=== PATIENT | female | born 1995 | race Caucasian/White ===

== ENCOUNTER 2023-10-31 17:06 | Emergency (ER) | payer OTHER ==
[2023-10-31 18:01] LABS: BASOPHILS % (AUTO) 0.5 %; EOSINOPHILS # (AUTO) 0.1 10^3/uL (0.0-0.7); EOSINOPHILS % (AUTO) 1.9 %; HCT - HEMATOCRIT 36.7 % (37.0-47.0); HGB - HEMOGLOBIN 12.5 g/dL (12.0-16.0); LYMPHOCYTES # (AUTO) 0.9 10^3/uL (1.5-3.5); LYMPHOCYTES % (AUTO) 20.1 %; MEAN CORPUSCULAR HEMOGLOBIN 31.3 pg (27.0-31.0); MEAN CORPUSCULAR HGB CONC 34.1 g/dL (32.0-36.0); MEAN CORPUSCULAR VOLUME 91.8 fL (81.0-99.0); MONOCYTES # (AUTO) 0.3 10^3/uL (0.0-1.0); MONOCYTES % (AUTO) 6.8 %; NEUTROPHILS % (AUTO) 70.5 %; PLT - PLATELET COUNT 268 10^3/uL (130-450); WHITE BLOOD COUNT 4.3 x10^3/uL (4.8-10.8)
[2023-10-31 18:14] LABS: ALBUMIN 4.9 g/dL (3.2-5.5); ALBUMIN/GLOBULIN RATIO 1.4 (1.0-2.2); BILIRUBIN,TOTAL 0.5 mg/dL (0.2-1.0); CALCIUM 9.9 mg/dL (8.5-10.3); CREATININE 0.9 mg/dL (0.6-1.3); POTASSIUM 3.8 mmol/L (3.5-4.5); TOTAL PROTEIN 8.3 g/dL (6.4-8.9)
[2023-10-31] MEDS: SODIUM CHLORIDE 0.9% 1,000 ML IV STA ×2 (19:07)
--- NOTE | 2023-10-31 19:16 | ED Physician Documentation ---
History of Present Illness - Stated complaint Stated Complaint: WEAKNESS/NO APPETITE/GI - Chief complaint Chief Complaint: General - History obtained from History obtained from: Patient - History of Present Illness Timing: Today Pain level max: 0 Pain level now: 0 - Additonal information Additional information: Patient is a 27-year-old female who presents to the emergency department stating that she has been sick with COVID for about the past 10 days. She states she feels tired and weak. She states that she has gastroparesis, diarrhea and feels like she is dehydrated. She is requesting IV fluids. No fevers. No chills. Cough is improving. Nothing makes it better or worse. Patient denies any possibility of . Not breast-feeding. Review of Systems Constitutional: denies: Fever, Chills Nose: denies: Rhinorrhea / runny nose, Congestion Skin: denies: Rash Musculoskeletal: denies: Neck pain, Back pain Neurologic: denies: Headache PD PAST MEDICAL HISTORY - Past Medical History Past Medical History: Yes Neuro: Migraines GI: Other Other Past Medical History: idopathic gastroparesis - Past Surgical History Past Surgical History: Yes General: Other HEENT: Tonsil/Adenoidectomy - Present Medications Home Medications: Ambulatory Orders Medication Instructions Recorded Confirmed Amitriptyline [Elavil] 25 mg PO HS 10/31/23 10/31/23 - Allergies Allergies/Adverse Reactions: Allergies Allergy/AdvReac Type Severity Reaction Status Date / Time doxycycline AdvReac Unknown Verified 10/31/23 17:31 - Social History Does the pt smoke?: No Smoking Status: Never smoker Does the pt drink ETOH?: Yes Does the pt have substance abuse?: No PD ED PE NORMAL - Vitals Vital signs reviewed: Yes - General General: Alert and oriented X 3, No acute distress - HEENT HEENT: Moist mucous membranes - Neck Neck: Supple, no meningeal sign - Cardiac Cardiac: RRR, Strong equal pulses - Respiratory Respiratory: No respiratory distress, Clear bilaterally - Abdomen Abdomen: Soft, Non tender, Non distended - Derm Derm: Warm and dry - Extremities Extremities: No edema - Neuro Neuro: Alert and oriented X 3 - Psych Psych: Normal mood, Normal affect Results - Vitals Vitals: Vital Signs - 24 hr 10/31/23 10/31/23 10/31/23 17:24 17:31 19:31 Temperature 36.8 C 36.8 C Heart Rate 124 H 124 H 89 Respiratory 15 15 18 Rate Blood Pressure 118/65 118/65 109/88 H O2 Saturation 99 99 98 10/31/23 20:33 Temperature Heart Rate 80 Respiratory 18 Rate Blood Pressure 109/88 H O2 Saturation 98 Oxygen O2 Source Room air - Labs Labs: Laboratory Tests 10/31/23 10/31/23 17:55 17:55 WBC 4.3 L RBC 4.00 L Hgb 12.5 Hct 36.7 L MCV 91.8 MCH 31.3 H MCHC 34.1 RDW 12.0 Plt Count 268 MPV 8.0 Neut # (Auto) 3.0 Lymph # (Auto) 0.9 L [place] # (Auto) 0.3 Eos # (Auto) 0.1 Baso # (Auto) 0.0 Absolute Nucleated RBC 0.00 Nucleated RBC % 0.0 Sodium 135 Potassium 3.8 Chloride 102 Carbon Dioxide 27 Anion Gap 6.0 BUN 11 Creatinine 0.9 Estimated GFR (MDRD) 74 L Glucose 96 Calcium 9.9 Total Bilirubin 0.5 AST 17 ALT 15 Alkaline Phosphatase 58 Total Protein 8.3 Albumin 4.9 Globulin 3.4 Albumin/Globulin Ratio 1.4 Lipase 26 PD Medical Decision Making - ED course Complexity details: reviewed results, re-evaluated patient, considered differential, d/w patient ED course: Patient was given 2 L of IV fluids. Feels much better. Tolerating p.o. without difficulty. No significant lab abnormalities. Patient is known positive for COVID we will have her follow-up with her doctor for further care and return if she worsens. Patient counseled regarding signs and symptoms for which I believe and urgent re-evaluation would be necessary. Patient with good understanding of and agreement to plan and is comfortable going home at this time This document was made in part using voice recognition software. While efforts are made to proofread this document, sound alike and grammatical errors may occur. Departure - Departure Disposition: 01 Home, Self Care Clinical Impression: Dehydration Condition: Good Instructions: ED Dehydration Follow-Up: your,doctor in 1 week [Other] Comments: Please drink plenty of fluids. Return if you worsen. Forms: PCP List Discharge Date/Time: 10/31/23 20:33
[2023-10-31 20:39] VITALS: BP 109/88; O2SAT 98
== END 2023-10-31 20:33 | disposition home or self-care (01) ==
LOC: ED 17:06
DX: U07.1 COVID-19 (principal); E86.0 Dehydration
CPT/HCPCS: 36415; 80053; 83690; 85025; 96360; 99283